=== PATIENT | female | born 1990 | race Caucasian/White ===

== ENCOUNTER 2024-07-05 18:56 | Emergency (ER) | payer OTHER, SELFPAY ==
[2024-07-05 19:00] VITALS: BP 131/67; PULSE 94; RESP 24; TEMP 36.3; O2SAT 98; BMI 52.3
--- NOTE | 2024-07-05 19:37 | ED_ITS ---
HPI - Abdominal Pain General Chief Complaint: Abdominal Pain Stated Complaint: abd pain Time Seen by Provider: 07/05/24 19:01 History of Present Illness HPI narrative: This 33-year-old female comes in reporting right upper quadrant abdominal pain that began after eating something about 6 hours prior to arrival. She had some pizza and then developed pain in the right upper quadrant that sometimes radiates up to her right shoulder. She states that a previous CT scan did show evidence of gallstones. She has wondered if this is a flare-up of her gallbladder causing these symptoms. Related Data Home Medications ?Medication ?Instructions ?Recorded ?Confirmed amitriptyline 25 mg tablet mg 07/05/24 cetirizine 10 mg tablet (24Hour 10 mg PO DAILY 07/05/24 07/05/24 Allergy) dicyclomine .ROUTE 07/05/24 fluvoxamine 100 mg tablet mg 07/05/24 omeprazole 40 mg capsule,delayed mg 07/05/24 release sucralfate .ROUTE 07/05/24 Allergies Allergy/AdvReac Type Severity Reaction Status Date / Time diphenhydramine Allergy Severe Anaphylaxis Verified 07/05/24 19:00 [From Benadryl] Iodinated Contrast Media Allergy Severe Anaphylaxis Verified 07/05/24 19:00 ketorolac [From Toradol] Allergy Severe Anaphylaxis Verified 07/05/24 19:00 latex Allergy Severe Anaphylaxis Verified 07/05/24 19:00 tramadol Allergy Severe Anaphylaxis Verified 07/05/24 19:00 Review of Systems Status of ROS Reports: 10 or more systems reviewed and unremarkable except as noted in History and below Narrative Constitutional: No fevers, no weight gain or loss. Eyes: No discharge. No vision changes. HENT: No congestion, no sore throat, no ear pain. Cardiovascular: No chest pain, no palpitations. Respiratory: No shortness of breath, no wheezes, no cough. Gastrointestinal: No vomiting, no diarrhea. Right upper quadrant abdominal pain. Genitourinary: No dysuria, no hematuria. Musculoskeletal: Normal range of motion. Skin: No rashes, no pruritis. Neurological: No dizziness, weakness, sensory change, speech change. Endo/Heme/Allergies: No bruising or bleeding. No polydipsia. Pysch: no suicidality, no anxiety, no insomnia. All other systems reviewed and are negative. PFSH PFSH Social History Smoking Status: Never smoker How often do you have a drink containing alcohol: 2-4 times a month How many standard drinks containing alcohol do you have on a typical day: 3 or 4 How often do you have six or more drinks on one occasion: Never AUDIT-C Alcohol total score: 3 Non-prescribed substance use: denies use Exam Narrative: Exam Narrative: Constitutional: Well-developed, well-nourished, no acute distress. HEENT: Normocephalic, atraumatic. Neck: Normal range of motion. Nontender. Supple. Heart: Regular. No murmurs. Normal rate. Intact distal pulses. Lungs: Clear to auscultation. No chest discomfort. No wheezes, rhonchi, or rales. Abdomen: Normal bowel sounds. Tenderness in the right upper quadrant. No rebound tenderness. Genitalia: Deferred. Back: No midline tenderness. Normal range of motion. Extremities: Normal range of motion. No injury. Skin: Intact. No rash. Warm. No erythema or pallor. Neurologic: No altered sensation. No weakness. Alert and oriented. Psychiatric: No suicidality. No anxiety or depression. No insomnia. Nursing notes and vitals signs are reviewed. Const: Vital Signs, click to edit/add: Vital Signs - 24 hr 07/05/24 19:00 07/05/24 21:04 Temperature 97.4 F L Pulse Rate 96 Pulse Rate [Pulse Oximeter] 94 Respiratory Rate 24 Blood Pressure [Ri ght Upper Arm] 131/67 Pulse Oximetry 98 95 Oxygen Delivery Me thod Room Air Course Vital Signs Vital signs: Initial Vital Signs Temperature 97.4 F L 07/05/24 19:00 Temperature Source Temporal Artery Scan 07/05/24 19:00 Pulse Rate 94 07/05/24 19:00 Respiratory Rate 24 07/05/24 19:00 Blood Pressure 131/67 07/05/24 19:00 Blood Pressure Mean 88 07/05/24 19:00 Blood Pressure Position Sitting 07/05/24 19:00 Pulse Oximetry 98 07/05/24 19:00 Oxygen Delivery Method Room Air 07/05/24 19:00 Vital Signs Temperature 97.4 F L 07/05/24 19:00 Pulse Rate 94 07/05/24 19:00 Respiratory Rate 24 07/05/24 19:00 Blood Pressure 131/67 07/05/24 19:00 Pulse Oximetry 98 07/05/24 19:00 Oxygen Delivery Method Room Air 07/05/24 19:00 Temperature 97.4 F L 07/05/24 19:00 Pulse Rate 96 07/05/24 21:04 Respiratory Rate 24 07/05/24 19:00 Blood Pressure 131/67 07/05/24 19:00 Pulse Oximetry 95 07/05/24 21:04 Oxygen Delivery Method Room Air 07/05/24 19:00 Medications Administered Medications: Discontinued Medications Generic Name Dose Route Start Last Admin Trade Name Mounika PRN Reason Stop Dose Admin Hydromorphone HCl 0.5 mg 07/05/24 19:16 07/05/24 19:47 Hydromorphone 0.5 Mg/0.5 Ml Inj IVP 07/05/24 19:17 0.5 mg ONCE ONE Administration Hydromorphone HCl 0.5 mg 07/05/24 20:34 07/05/24 20:53 Hydromorphone 0.5 Mg/0.5 Ml Inj IVP 07/05/24 20:35 0.5 mg ONCE ONE Administration Lorazepam 0.5 mg 07/05/24 20:35 07/05/24 20:53 Lorazepam 2 Mg/Ml Inj IV 07/05/24 20:36 0.5 mg ONCE ONE Administration MDM - Abdominal Pain MDM Narrative Medical decision making narrative: This patient comes in with severe right upper quadrant abdominal pain. She states that a previous CT scan did identify some gallstones. She had some pizza about 6 hours prior to arrival here and states that pain began after that. She arrives with normal vital signs and continues to complain of pain throughout her whole stay here. She had an IV in place and did receive 4 mg of Zofran by a ambulance personnel EN route here. I ordered a half a mg of Dilaudid for pain relief and she stated that this did not seem to help much. I used bedside ultrasound to evaluate her gallbladder which was a difficult study is the patient is morbidly obese and the gallbladder was visualized and appeared contracted. The labs are acquired and these are all returning with normal findings. There is no evidence of infection or obstruction. The patient is okay to return home. I did talk with the surgeon on-call regarding this patient and relate information to the patient that it is her option to establish an appointment with the surgery Clinic for ongoing management. Patient is okay to be discharged home and did receive [employer] prescription for [place]. Lab Data Labs: Lab Results 07/05/24 Range/Units 20:05 WBC 6.27 (4.50-11.00) K/uL RBC 4.05 (4.00-5.20) m/uL Hgb 9.8 L (12.0-16.0) gm/dL Hct 32.7 L (33.0-51.0) % MCV 81 (80-100) fL MCH 24 L (26-34) pg MCHC 30 L (32-36) gm/dL RDW Coeff of Marvin 15.0 (11.5-15.5) % Plt Count 257 (140-440) K/uL Neut % (Auto) 56.5 (42.0-72.0) % Lymph % (Auto) 29.2 (20-44) % [place] % (Auto) 6.5 (0.0-11.0) % Eos % (Auto) 7.0 (0.0-7.0) % Baso % (Auto) 0.6 (0.0-3.0) % Neut # (Auto) 3.54 (1.7-7.0) K/uL Lymph # (Auto) 1.83 (0.90-2.90) K/uL [place] # (Auto) 0.40 (0.00-0.90) K/UL Eos # (Auto) 0.44 (0.00-0.50) K/uL Baso # (Auto) 0.04 (0.00-0.30) K/uL Abs Immat Gran (auto) 0.01 (0.00-0.30) K/uL Imm/Tot Granulo (auto) 0.2 % Sodium 141 (135-149) mmol/L Potassium 4.2 (3.6-5.1) mmol/L Chloride 111 (96-114) mmol/L Carbon Dioxide 21 (20-32) mmol/L Anion Gap 9 (7-15) mEq/L BUN 19 (5-24) mg/dL Creatinine 0.8 (0.5-1.5) mg/dL Estimated Creat Clear 77.63 Estimated GFR 98 ml/min Glucose 99 (60-115) mg/dL Calcium 9.4 (8.4-10.6) mg/dL Total Bilirubin 0.3 (0.1-1.5) mg/dL Direct Bilirubin 0.3 (0.0-0.5) mg/dL AST 19 (12-35) U/L ALT 18 (4-35) U/L Alkaline Phosphatase 90 (40-150) U/L Total Protein 7.1 (6.0-8.3) g/dL Albumin 4.2 (3.3-5.0) g/dL Lipase 44 (23-300) U/L Discharge Plan Discharge Clinical Impression: Abdominal pain Patient Disposition: Home, Self-Care Condition: Stable Additional Instructions: Take medication as prescribed and needed. Follow up with surgery Clinic for ongoing management. Call [phone] for appointment. Return if worsening. Prescriptions: No Action omeprazole 40 mg capsule,delayed release(DR/EC) Patient Comments: [NO ORIGINAL SIG] amitriptyline 25 mg tablet Patient Comments: [NO ORIGINAL SIG] fluvoxamine 100 mg tablet Patient Comments: [NO ORIGINAL SIG] dicyclomine [Bentyl] .ROUTE cetirizine [24Hour Allergy] 10 mg tablet 10 mg PO DAILY sucralfate .ROUTE Follow Up/Referrals: Provider,Not a Local [Primary Care Provider] - Stand Alone Forms: [facility] Info Instructions Procedures Ultrasound Biliary exam #1: Anatomical areas examined: gallbladder, long and short axis Indications: RUQ/epigastric pain Exam type: limited abdominal ultrasound; RUQ Description/Findings: Contracted gallbladder difficult to visualize but shows no obvious sign of abnormality.
[2024-07-05] MEDS: HYDROmorphone 0.5 mg/0.5 ml inj IVP ×2 (19:47→20:53)
[2024-07-05 20:10] LABS: Basophils Absolute Auto 0.04 K/uL (0.00-0.30); Basophils Percent Auto 0.6 % (0.0-3.0); Eosinophils Absolute Auto 0.44 K/uL (0.00-0.50); Hematocrit 32.7 % (33.0-51.0); Hemoglobin* 9.8 gm/dL (12.0-16.0); Immature Granulocytes Abs Auto 0.01 K/uL (0.00-0.30); Immature Granulocytes Pct Auto 0.2 %; Lymphocytes Absolute Auto 1.83 K/uL (0.90-2.90); Lymphocytes Percent Auto 29.2 % (20-44); Mean Corpuscular HGB Conc 30 gm/dL (32-36); Mean Corpuscular Hemoglobin 24 pg (26-34); Mean Corpuscular Volume 81 fL (80-100); Monocytes Percent Auto 6.5 % (0.0-11.0); Neutrophils Absolute Auto 3.54 K/uL (1.7-7.0); Neutrophils Percent Auto 56.5 % (42.0-72.0); Platelet Count* 257 K/uL (140-440); Red Blood Count 4.05 m/uL (4.00-5.20); White Blood Count* 6.27 K/uL (4.50-11.00)
[2024-07-05 20:15] LABS: Slide Review Reflex No
[2024-07-05 20:22] LABS: Albumin* 4.2 g/dL (3.3-5.0)
[2024-07-05 20:23] LABS: Chloride* 111 mmol/L (96-114); Potassium* 4.2 mmol/L (3.6-5.1); Sodium* 141 mmol/L (135-149)
[2024-07-05 20:25] LABS: Anion Gap 9 mEq/L (7-15); Bilirubin Direct* 0.3 mg/dL (0.0-0.5); Bilirubin Total* 0.3 mg/dL (0.1-1.5); Carbon Dioxide* 21 mmol/L (20-32); Creatinine* 0.8 mg/dL (0.5-1.5); Est. Creatinine Clearance* 77.63; Estimated Glomerular Filt Rate 98 ml/min
[2024-07-05 20:26] LABS: Alanine Aminotransferase* 18 U/L (4-35); Alkaline Phosphatase* 90 U/L (40-150); Aspartate Amino Transferase* 19 U/L (12-35); Blood Urea Nitrogen* 19 mg/dL (5-24); Calcium* 9.4 mg/dL (8.4-10.6); Glucose* 99 mg/dL (60-115); Lipase* 44 U/L (23-300); Total Protein* 7.1 g/dL (6.0-8.3)
[2024-07-05] MEDS: LORazepam 2 MG/ML inj 0.5 MG IV (20:53)
[2024-07-05 21:04] VITALS: PULSE 96; O2SAT 95
[2024-07-05] MEDS: ACETAMINOPHEN 500 MG TABLET 1000 MG PO (21:42)
[2024-07-05] MEDS: HYDROmorphone 0.5 mg/0.5 ml inj 1 MG IM (21:44)
== END 2024-07-05 22:03 | disposition home or self-care (01) ==
PROVIDERS: Emergency Provider Emergency Medicine Emergency Medical Services
DX: R10.9 Unspecified abdominal pain (principal)
CPT/HCPCS: 36415; 76705; 80048; 80076; 83690; 85025; 96372; 96374; 96376; 99284; A9270; J1170; J2060

== ENCOUNTER 2025-07-28 20:01 | Outpatient (CLI) | payer OTHER, SELFPAY | END 2025-07-28 20:02 | disposition home or self-care (01) | LOC: AMB 07-29 16:25 | PROVIDERS: Visit Provider Family Medicine | DX: R10.9 Unspecified abdominal pain (principal) | CPT/HCPCS: A0425; A0433 ==